=== PATIENT | female | born 1985 ===

== ENCOUNTER 2017-11-22 14:30 | Emergency (ER) | payer MEDICAID ==
[2017-11-22 14:35] VITALS: BMI 22.6
[2017-11-22 14:37] VITALS: BP 136/87; PULSE 97; RESP 18; TEMP 98.1; O2SAT 100
[2017-11-22 15:21] LABS: SQUAMOUS EPITHIAL < 1 /hpf (0-5); URINE BILIRUBIN NEGATIVE (NEGATIVE); URINE BLOOD NEGATIVE (NEGATIVE); URINE CLARITY Clear (Clear); URINE COLOR Yellow (YELLOW); URINE GLUCOSE (UA) NORMAL (Normal); URINE LEUKOCYTE ESTERASE NEG Leu/uL (Negative); URINE PROTEIN NEGATIVE (NEGATIVE); URINE UROBILINOGEN NORMAL mg/dL (0.2-1.0)
[2017-11-22 15:25] LABS: HCG,QUALITATIVE URINE NEGATIVE (NEGATIVE)
[2017-11-22] MEDS ORDERED: cefTRIAXone (Rocephin) 250 mg Inj IM STA (15:39)
--- NOTE | 2017-11-22 16:33 | C.PDOC ---
History Of Present Illness 32 year old female patient presents to the ER with complaints of vaginal discharge for 3 days. Patient notes she has external vaginal burning when urinating. Patient also reports swelling and rash. Patient admits to unprotected sex. She denies hx of STD, frequent urination, vaginal bleed, back pain, fever, N/V, and abdominal pain. Time Seen by Provider: 11/22/17 14:58 Chief Complaint (Nursing): Female Genitourinary History Per: Patient History/Exam Limitations: no limitations Onset/Duration Of Symptoms: Days Current Symptoms Are (Timing): Still Present Past Medical History Reviewed: Historical Data, Nursing Documentation, Vital Signs Vital Signs: Last Vital Signs Temp 98.1 F 11/22/17 14:35 Pulse 97 H 11/22/17 14:35 Resp 18 11/22/17 14:35 BP 136/87 11/22/17 14:35 Pulse Ox 100 11/22/17 18:05 - Medical History PMH: Hyperthyroidism Family History: States: No Known Family Hx - Social History Hx Alcohol Use: Yes Hx Substance Use: No - Immunization History Hx Tetanus Toxoid Vaccination: No Hx Influenza Vaccination: No Hx Pneumococcal Vaccination: No Review Of Systems Except As Marked, All Systems Reviewed And Found Negative. Constitutional: Negative for: Fever, Other (Hx of STD) Gastrointestinal: Negative for: Nausea, Vomiting Genitourinary: Positive for: Other (external vaginal burning when urinating, swelling, and rash). Negative for: Frequency, Vaginal Bleeding Musculoskeletal: Negative for: Back Pain, Other (abdominal pain) Physical Exam - Physical Exam Appears: Well, Non-toxic, No Acute Distress Skin: Normal Color, Warm, Dry Head: Atraumatic, Normacephalic Eye(s): bilateral: Normal Inspection, EOMI Nose: Normal Oral Mucosa: Moist Neck: Normal ROM, Supple Lymphatic: No Inguinal Node Tenderness Chest: Symmetrical Cardiovascular: Rhythm Regular Respiratory: Normal Breath Sounds, No Accessory Muscle Use, Other (speaking in full sentences) Gastrointestinal/Abdominal: Soft, No Tenderness Pelvic: Vaginal Discharge (thick white discharge), No Cervical Motion Tenderness , No Adnexal Tenderness, Other (mild swelling, and erythema on left labia majora ; no ulceration) Extremity: Bilateral: Atraumatic Neurological/Psych: Oriented x3, Normal Speech, No Other (focal deficits) ED Course And Treatment O2 Sat by Pulse Oximetry: 100 (RA) Pulse Ox Interpretation: Normal Progress Note: Impression: 32 year old female patient with vaginal discharge. Plan: -- GC/Chlamydia. -- Rocephin. -- Zithromax. -- UCx. -- UA. Discsused with pt she will be treated for gc/chalydia. External pain and rash may indicate early herpes therefore will be given any virals. Instructed follow up with OBGYN in1-2 days and partner treatment. Also advised protection. Disposition - Disposition Disposition: HOME/ ROUTINE Disposition Time: 16:28 Condition: STABLE Additional Instructions: Follow up with your primary medical doctor or clinic in 2-3 days for further evaluation. Have your partner checked and treated. Take medications as prescribed. Return to the emergency department at any time if symptoms persist or worsen. Prescriptions: Acyclovir [Zovirax] 400 mg PO TID #30 tablet Instructions: Screening for Sexually Transmitted Infections Forms: [employer] (Swiss) - Clinical Impression Clinical Impression: STD (sexually transmitted disease) - PA / [employer] / Resident Statement / has reviewed & agrees with the documentation as recorded. - Scribe Statement The provider has reviewed the documentation as recorded by the Soraida Rocha Do All medical record entries made by the Soraida were at my direction and personally dictated by me. I have reviewed the chart and agree that the record accurately reflects my personal performance of the history, physical exam, medical decision making, and the department course for this patient. I have also personally directed, reviewed, and agree with the discharge instructions and disposition.
== END 2017-11-22 16:45 | disposition home or self-care (01) ==
LOC: C.ER 14:30
DX: A64 Unspecified sexually transmitted disease (principal)
CPT/HCPCS: 81001; 84703; 87086; 87491; 87591; 96372; 99283; J0696